=== PATIENT | male | born 1950 | race Caucasian/White ===

== ENCOUNTER 2022-06-29 19:23 | Outpatient (REF) | payer OTHER, SELFPAY ==
[2022-06-29 23:57] LABS: SARS PCR* Negative SARS-CoV-2 (Negative)
== END 2022-06-29 19:24 | disposition home or self-care (01) ==
LOC: NPINS 19:23
DX: Z11.52 Encounter for screening for COVID-19 (principal)
CPT/HCPCS: 87635

== ENCOUNTER 2022-07-02 09:15 | Outpatient (CLI) | payer OTHER, SELFPAY ==
--- NOTE | 2022-07-02 11:15 | W.ANESCHARGE ---
Anesthesia Charges Start Date/Time Anesthesia Start Date: 07/02/22 Anesthesia Start Time: 10:35 Stop Date/Time Anesthesia Stop Date: 07/02/22 Anesthesia Stop Time: 11:15 Summary Emergency: No Extremes of Age: Over 70-CPT [id number]
--- NOTE | 2022-07-02 11:27 | W.ANESCHARGE ---
Anesthesia Charges Start Date/Time Anesthesia Start Date: 07/02/22 Anesthesia Start Time: 10:35 Stop Date/Time Anesthesia Stop Date: 07/02/22 Anesthesia Stop Time: 11:15 Summary Emergency: No Extremes of Age: Over 70-CPT [id number]
== END 2022-07-02 09:16 | disposition home or self-care (01) ==
PROVIDERS: Visit Provider Internal Medicine Gastroenterology
DX: D50.9 Iron deficiency anemia, unspecified (principal); K25.9 Gastric ulcer, unspecified as acute or chronic, without hemorrhage or perforation; K63.5 Polyp of colon; K57.30 Diverticulosis of large intestine without perforation or abscess without bleeding; Z86.010 Personal history of colon polyps
CPT/HCPCS: 00813; 43239; 45380; 45385; 88305; 99100; J2704; J3490